=== PATIENT | male | born 1995 | race American Indian/Alaskan Native ===

== ENCOUNTER 2016-08-06 21:26 | Emergency (ER) | payer MEDICAID, OTHER ==
[2016-08-06] MEDS ORDERED: Proparacaine 0.5% Ophth Soln 15 ML Bottle EYEBOTH ONE (21:29)
[2016-08-06] MEDS ORDERED: Proparacaine 0.5% Ophth Soln 15 ML Bottle ONE (21:29)
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
[2016-08-06 21:51] VITALS: BP 151/76
[2016-08-06] MEDS ORDERED: HYDROmorphone 1 MG/ML Syringe IM ONE (21:56)
== END 2016-08-06 22:58 | disposition home or self-care (01) ==
LOC: JP.ED 21:26
DX: T26.12XA Burn of cornea and conjunctival sac, left eye, initial encounter (principal); T20.10XA Burn of first degree of head, face, and neck, unspecified site, initial encounter; X19.XXXA Contact with other heat and hot substances, initial encounter
CPT/HCPCS: 96372; 99283; A9270; J1170

== ENCOUNTER 2019-11-03 09:53 | Emergency (ER) | payer SELFPAY ==
[2019-11-03 10:13] VITALS: BP 109/63; PULSE 83
[2019-11-03] MEDS ORDERED: HYDROmorphone 1 MG/ML Syringe IM ONE (10:25)
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
[2019-11-03] MEDS ORDERED: LORazepam 2 MG/ML SDV IVPUSH ONE (11:26)
[2019-11-03] MEDS ORDERED: Sodium Chloride 0.9% 1,000 ML IV SCH (11:30)
[2019-11-03] MEDS ORDERED: LORazepam 1 MG Tab PO ONE (11:37)
[2019-11-03] MEDS ORDERED: Ketorolac 60 MG/2 ML SDV IM ONE (12:44)
--- NOTE | 2019-11-04 09:25 | CR ---
Elbow Min 3V Lt, Forearm 2V Lt CLINICAL HISTORY: Fall FINDINGS: No acute fracture or dislocation is noted. The fat pads are in normal position. Impression: Negative Forearm 2V Lt CLINICAL HISTORY: Fall FINDINGS: There is no fracture or dislocation IMPRESSION: Negative
--- NOTE | 2019-11-04 09:37 | CR ---
Shoulder Comp Lt CLINICAL HISTORY: Left arm pain FINDINGS: There is no acute fracture or dislocation in the left shoulder. Articular surfaces are smooth. There is some mild deformity of the acromium. This may be postsurgical. Impression: No fracture
== END 2019-11-03 13:06 | disposition home or self-care (01) ==
LOC: JP.ED 09:53
DX: S49.92XA Unspecified injury of left shoulder and upper arm, initial encounter (principal); S40.212A Abrasion of left shoulder, initial encounter; S50.312A Abrasion of left elbow, initial encounter; S00.81XA Abrasion of other part of head, initial encounter; F17.210 Nicotine dependence, cigarettes, uncomplicated; W01.0XXA Fall on same level from slipping, tripping and stumbling without subsequent striking against object, initial encounter
CPT/HCPCS: 73030; 73080; 73090; 96372; 99283; A9270; J1170; J1885

== ENCOUNTER 2023-01-03 08:41 | Emergency (ER) | payer MEDICAID ==
[2023-01-03 08:52] VITALS: PULSE 74
[2023-01-03 08:55] VITALS: BP 117/70
[2023-01-03 09:04] LABS: BASOPHILS ABSOLUTE AUTO 0.06 K/uL (0.00-0.10); BASOPHILS PERCENT AUTO 1.2 % (0.1-1.3); EOSINOPHILS PERCENT AUTO 1.9 % (0.0-5.4); HEMATOCRIT 39.9 % (38.4-49.7); HEMOGLOBIN 13.5 g/dL (12.9-16.9); IMMATURE GRAN PERCENT AUTO 0.2 % (0.0-0.7); LYMPHOCYTES ABSOLUTE AUTO 0.85 K/uL (0.8-3.3); LYMPHOCYTES PERCENT AUTO 16.4 % (11.4-47.7); MEAN CORPUSCULAR HEMOGLOBIN 28.2 pg (31.6-35.5); MEAN CORPUSCULAR HGB CONC 33.8 g/dL (31.6-35.5); MEAN CORPUSCULAR VOLUME 83.3 fL (81.4-99.0); MONOCYTES ABSOLUTE AUTO 0.38 K/uL (0.20-0.90); MONOCYTES PERCENT AUTO 7.4 % (3.3-12.6); NEUTROPHILS ABSOLUTE AUTO 3.77 K/uL (1.0-7.6); NEUTROPHILS PERCENT AUTO 72.9 % (40.0-78.1); PLATELET COUNT,PLT 331 K/uL (130-375); RED BLOOD CELL COUNT 4.79 M/uL (4.14-5.76); WHITE BLOOD CELL COUNT,WBC 5.2 K/uL (3.2-11.0)
[2023-01-03 09:05] LABS: IMMATURE GRAN ABSOLUTE AUTO 0.01 K/uL (0.00-0.23)
[2023-01-03 09:25] LABS: A/G RATIO 1.3 (1.2-2.2); ALANINE AMINOTRANSFERASE,ALT 23 U/L (12-78); ALBUMIN 4.1 g/dL (3.4-5.0); ALKALINE PHOSPHATASE 50 U/L (46-116); ANION GAP 9.5 mmol/L (5.0-14.0); ASPARTATE AMNIOTRANSFERASE,AST 16 U/L (15-37); BILIRUBIN TOTAL 0.4 mg/dL (0.2-1.0); BLOOD UREA NITROGEN,BUN 11 mg/dL (7-18); CALCIUM 8.7 mg/dL (8.5-10.1); CARBON DIOXIDE,CO2 27 mmol/L (21-32); CHLORIDE,CL 104 mmol/L (100-108); EST CRCL DRUG DOSING (CG) 94.81 mL/min; ESTIMATED GFR 104 mL/min (>60); GLUCOSE RANDOM 96 mg/dL (74-106); PROTEIN TOTAL,TP 7.3 g/dL (6.4-8.2); SODIUM,NA 140 mmol/L (140-148)
[2023-01-03 09:30] LABS: AMPHETAMINES SCREEN, URINE NEGATIVE (NEGATIVE); BARBITURATE SCREEN,URINE NEGATIVE (NEGATIVE); BENZODIAZEPINES SCREEN,URINE NEGATIVE (NEGATIVE); METHADONE SCREEN, URINE NEGATIVE (NEGATIVE); METHAMPHETAMINES SCREEN, URINE NEGATIVE (NEGATIVE); OXYCODONE SCREEN,URINE NEGATIVE (NEGATIVE); PROPOXYPHENE SCREEN,URINE NEGATIVE (NEGATIVE); THC SCREEN,URINE 50 NG/ML NEGATIVE (NEGATIVE)
== END 2023-01-03 09:54 ==
LOC: JP.ED 08:41
DX: F10.10 Alcohol abuse, uncomplicated (principal); Y90.0 Blood alcohol level of less than 20 mg/100 ml; F12.90 Cannabis use, unspecified, uncomplicated; F17.210 Nicotine dependence, cigarettes, uncomplicated
CPT/HCPCS: 36415; 80053; 80305-QW; 80307; 85025; 99283

== ENCOUNTER 2024-04-24 04:09 | Emergency (ER) | payer SELFPAY ==
[2024-04-24 04:40] LABS: BASOPHILS ABSOLUTE AUTO 0.07 K/uL (0.00-0.10); BASOPHILS PERCENT AUTO 0.8 % (0.1-1.3); EOSINOPHILS ABSOLUTE AUTO 0.11 K/uL (0.00-0.40); EOSINOPHILS PERCENT AUTO 1.3 % (0.0-5.4); HEMATOCRIT 39.5 % (38.4-49.7); HEMOGLOBIN 13.5 g/dL (12.9-16.9); IMMATURE GRAN PERCENT AUTO 0.2 % (0.0-0.7); LYMPHOCYTES PERCENT AUTO 21.8 % (11.4-47.7); MEAN CORPUSCULAR HEMOGLOBIN 28.3 pg (31.6-35.5); MEAN CORPUSCULAR HGB CONC 34.2 g/dL (31.6-35.5); MEAN CORPUSCULAR VOLUME 82.8 fL (81.4-99.0); MONOCYTES ABSOLUTE AUTO 0.81 K/uL (0.20-0.90); MONOCYTES PERCENT AUTO 9.3 % (3.3-12.6); NEUTROPHILS PERCENT AUTO 66.6 % (40.0-78.1); PLATELET COUNT,PLT 349 K/uL (130-375); RED BLOOD CELL COUNT 4.77 M/uL (4.14-5.76); WHITE BLOOD CELL COUNT,WBC 8.7 K/uL (3.2-11.0)
[2024-04-24] MEDS: Ketorolac 30 MG/ML SDV IM ONE (04:43)
[2024-04-24 04:45] LABS: IMMATURE GRAN ABSOLUTE AUTO 0.02 K/uL (0.00-0.23)
[2024-04-24 04:47] LABS: AMPHETAMINES SCREEN, URINE NEGATIVE (NEGATIVE); BARBITURATE SCREEN,URINE NEGATIVE (NEGATIVE); BENZODIAZEPINES SCREEN,URINE NEGATIVE (NEGATIVE); METHADONE SCREEN, URINE NEGATIVE (NEGATIVE); METHAMPHETAMINES SCREEN, URINE NEGATIVE (NEGATIVE); OXYCODONE SCREEN,URINE NEGATIVE (NEGATIVE); PROPOXYPHENE SCREEN,URINE NEGATIVE (NEGATIVE); THC SCREEN,URINE 50 NG/ML PRESUMPTIVE POSITIVE (NEGATIVE)
[2024-04-24 04:57] LABS: A/G RATIO 1.2 (1.2-2.2); ALANINE AMINOTRANSFERASE,ALT 28 U/L (12-78); ALBUMIN 4.2 g/dL (3.4-5.0); ALKALINE PHOSPHATASE 65 U/L (46-116); ANION GAP 12.7 mmol/L (5.0-14.0); ASPARTATE AMNIOTRANSFERASE,AST 22 U/L (15-37); BILIRUBIN TOTAL 0.4 mg/dL (0.2-1.0); BLOOD UREA NITROGEN,BUN 12 mg/dL (7-18); CALCIUM 8.5 mg/dL (8.5-10.1); CARBON DIOXIDE,CO2 25 mmol/L (21-32); CHLORIDE,CL 104 mmol/L (100-108); CREATININE 1.2 mg/dL (0.8-1.3); ESTIMATED GFR 83 mL/min (>60); GLUCOSE RANDOM 86 mg/dL (74-106); POTASSIUM,K 3.6 mmol/L (3.6-5.2); PROTEIN TOTAL,TP 7.6 g/dL (6.4-8.2); SODIUM,NA 142 mmol/L (140-148)
[2024-04-24] MEDS: LORazepam 2 MG/ML SDV IM ONE (05:29)
[2024-04-24 18:41] VITALS: BP 125/72; PULSE 55
== END 2024-04-24 18:49 ==
LOC: JP.ED 04:09
DX: F20.9 Schizophrenia, unspecified (principal); F17.210 Nicotine dependence, cigarettes, uncomplicated; Z86.16 Personal history of COVID-19; Z90.49 Acquired absence of other specified parts of digestive tract; Z79.899 Other long term (current) drug therapy
CPT/HCPCS: 36415; 70450; 80053; 80305-QW; 80307; 85025; 96372; 99284; J1885; J2060

== ENCOUNTER 2024-11-09 20:26 | Emergency (ER) | payer MEDICAID ==
[2024-11-09 21:05] LABS: BASOPHILS ABSOLUTE AUTO 0.07 K/uL (0.00-0.10); BASOPHILS PERCENT AUTO 0.9 % (0.1-1.3); EOSINOPHILS ABSOLUTE AUTO 0.05 K/uL (0.00-0.40); EOSINOPHILS PERCENT AUTO 0.6 % (0.0-5.4); IMMATURE GRAN PERCENT AUTO 0.3 % (0.0-0.7); LYMPHOCYTES ABSOLUTE AUTO 1.76 K/uL (0.8-3.3); LYMPHOCYTES PERCENT AUTO 22.7 % (11.4-47.7); MONOCYTES ABSOLUTE AUTO 0.65 K/uL (0.20-0.90); MONOCYTES PERCENT AUTO 8.4 % (3.3-12.6); NEUTROPHILS ABSOLUTE AUTO 5.21 K/uL (1.0-7.6); NEUTROPHILS PERCENT AUTO 67.1 % (40.0-78.1); PLATELET COUNT,PLT 320 K/uL (130-375); RED BLOOD CELL COUNT 4.81 M/uL (4.14-5.76); WHITE BLOOD CELL COUNT,WBC 7.8 K/uL (3.2-11.0)
[2024-11-09 21:07] LABS: IMMATURE GRAN ABSOLUTE AUTO 0.02 K/uL (0.00-0.23)
[2024-11-09 21:35] LABS: A/G RATIO 1.2 (1.2-2.2); ALANINE AMINOTRANSFERASE,ALT 58 U/L (12-78); ASPARTATE AMNIOTRANSFERASE,AST 33 U/L (15-37); BILIRUBIN TOTAL 0.9 mg/dL (0.2-1.0); BLOOD UREA NITROGEN,BUN 18 mg/dL (7-18); CARBON DIOXIDE,CO2 26 mmol/L (21-32); CHLORIDE,CL 98 mmol/L (100-108); CREATININE 1.2 mg/dL (0.8-1.3); EST CRCL DRUG DOSING (CG) 78.30 mL/min; ESTIMATED GFR 83 mL/min (>60); GLUCOSE RANDOM 83 mg/dL (74-106); POTASSIUM,K 3.4 mmol/L (3.6-5.2); PROTEIN TOTAL,TP 8.0 g/dL (6.4-8.2); SODIUM,NA 138 mmol/L (140-148)
[2024-11-09 23:55] LABS: AMPHETAMINES SCREEN, URINE NEGATIVE (NEGATIVE); METHADONE SCREEN, URINE NEGATIVE (NEGATIVE); METHAMPHETAMINES SCREEN, URINE PRESUMPTIVE POSITIVE (NEGATIVE); OXYCODONE SCREEN,URINE NEGATIVE (NEGATIVE); PROPOXYPHENE SCREEN,URINE NEGATIVE (NEGATIVE); THC SCREEN,URINE 50 NG/ML PRESUMPTIVE POSITIVE (NEGATIVE)
[2024-11-10 22:15] VITALS: BP 131/79; PULSE 71
== END 2024-11-10 22:00 ==
LOC: JP.ED 20:26
DX: R45.851 Suicidal ideations (principal); F17.200 Nicotine dependence, unspecified, uncomplicated; Z86.16 Personal history of COVID-19; Z90.49 Acquired absence of other specified parts of digestive tract; Z79.899 Other long term (current) drug therapy
CPT/HCPCS: 36415; 80053; 80305; 80307; 84443; 85025; 96372; 99285; J1171

== ENCOUNTER 2025-01-21 22:13 | Emergency (ER) | payer MEDICAID ==
[2025-01-22] MEDS: Amoxicillin/Clavulanate K 875-125 MG Tab PO ONE (00:05)
[2025-01-22 00:31] LABS: BASOPHILS ABSOLUTE AUTO 0.07 K/uL (0.00-0.10); BASOPHILS PERCENT AUTO 0.8 % (0.1-1.3); EOSINOPHILS ABSOLUTE AUTO 0.07 K/uL (0.00-0.40); EOSINOPHILS PERCENT AUTO 0.8 % (0.0-5.4); IMMATURE GRAN ABSOLUTE AUTO 0.08 K/uL (0.00-0.23); IMMATURE GRAN PERCENT AUTO 0.9 % (0.0-0.7); LYMPHOCYTES ABSOLUTE AUTO 2.60 K/uL (0.8-3.3); LYMPHOCYTES PERCENT AUTO 28.6 % (11.4-47.7); MONOCYTES ABSOLUTE AUTO 0.82 K/uL (0.20-0.90); MONOCYTES PERCENT AUTO 9.0 % (3.3-12.6); NEUTROPHILS ABSOLUTE AUTO 5.45 K/uL (1.0-7.6); NEUTROPHILS PERCENT AUTO 59.9 % (40.0-78.1); PLATELET COUNT,PLT 346 K/uL (130-375); RED BLOOD CELL COUNT 5.17 M/uL (4.14-5.76); WHITE BLOOD CELL COUNT,WBC 9.1 K/uL (3.2-11.0)
[2025-01-22 00:49] LABS: A/G RATIO 1.1 (1.2-2.2); ALANINE AMINOTRANSFERASE,ALT 129 U/L (12-78); ASPARTATE AMNIOTRANSFERASE,AST 63 U/L (15-37); BILIRUBIN TOTAL 0.2 mg/dL (0.2-1.0); BLOOD UREA NITROGEN,BUN 18 mg/dL (7-18); CARBON DIOXIDE,CO2 30 mmol/L (21-32); CHLORIDE,CL 103 mmol/L (100-108); CREATININE 0.9 mg/dL (0.8-1.3); EST CRCL DRUG DOSING (CG) 107.32 mL/min; ESTIMATED GFR 117 mL/min (>60); GLUCOSE RANDOM 95 mg/dL (74-106); POTASSIUM,K 4.5 mmol/L (3.6-5.2); PROTEIN TOTAL,TP 7.8 g/dL (6.4-8.2); SODIUM,NA 142 mmol/L (140-148)
[2025-01-22 00:50] LABS: AMPHETAMINES SCREEN, URINE NEGATIVE (NEGATIVE); METHADONE SCREEN, URINE NEGATIVE (NEGATIVE); METHAMPHETAMINES SCREEN, URINE NEGATIVE (NEGATIVE); OXYCODONE SCREEN,URINE NEGATIVE (NEGATIVE); PROPOXYPHENE SCREEN,URINE NEGATIVE (NEGATIVE); THC SCREEN,URINE 50 NG/ML PRESUMPTIVE POSITIVE (NEGATIVE)
[2025-01-22] MEDS: Ketorolac 30 MG/ML SDV IM ONE (01:32)
[2025-01-22 17:57] VITALS: BP 138/71; PULSE 110
== END 2025-01-22 19:45 ==
LOC: JP.ED 22:13
DX: F20.9 Schizophrenia, unspecified (principal); R45.851 Suicidal ideations; Z79.899 Other long term (current) drug therapy; Z86.16 Personal history of COVID-19; Z90.49 Acquired absence of other specified parts of digestive tract
CPT/HCPCS: 36415; 80053; 80143; 80179; 80305; 80307; 85025; 87426; 96372; 99285; A9270; J1885